=== PATIENT | female | born 1950 | race Two or more races ===

== ENCOUNTER 2023-04-14 11:39 | Outpatient (AMB) | payer MEDICARE, SELFPAY ==
--- NOTE | 2023-04-14 12:15 | HO.SPINEOV ---
Intake Intake Visit Reasons: SI joint Intake Note: Mrs. Zhong is here today c/o recurrent bilateral SI Joint pain. More on the right side. CT Scan done @ [facility] [employer] Required: No Assessment & Plan Assessment & Plan (1) Chronic right SI joint pain: Code(s): M53.3 - Sacrococcygeal disorders, not elsewhere classified; G89.29 - Other chronic pain Plan Dear colleague, On 04/14/2023, I saw for return visit Aniya Zhong for recurrent right SI joint pain. She had bilateral SI joint fusion done in 2020 and 2021 to which she responded well. She had a traumatic event in February and since that time she has suffered from progressive pain in the right SI joint area. 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 A CT of the pelvis shows a solid fusion of the left SI joint but on the right side the implant is sitting outside the SI joint. I reviewed the imaging in detail with the patient and her . My theory is that the traumatic event the allograft that I pack on top of the implant was disrupted. We had an extensive discussion on what would be the best steps forward. My opinion is that she should 1st get an right knee replacement as the results of knee replacements are pretty good and predictable. The result of a revision of the right SI joint is unpredictable. The patient would like to be referred to Pain Management to talk about the Sprint procedure as an alternative to surgery to address the recurrent right SI joint pain. I will refer to Dr. Quezada to discuss this. In the meantime, she is going to schedule her knee replacement and she will keep me up-to-date on her clinical progress. I spent more than 45 minutes in this consult for preparation, review of imaging and discussing plan of care. Orders: Referrals Pain Management Referral G89.29 - Other chronic pain, M53.3 - Sacrococcygeal disorders, not elsewhere classified Coding Level of Care Code Est Pt Level 5 (51445) Diagnoses Chronic right SI joint pain M53.3; G89.29
== END 2023-04-14 12:57 | disposition home or self-care (01) ==
PROVIDERS: PCP Family Medicine; Visit Provider Neurological Surgery
DX: M53.3 Sacrococcygeal disorders, not elsewhere classified (principal); G89.29 Other chronic pain
CPT/HCPCS: 99215

== ENCOUNTER → 2023-04-14 11:39 | Outpatient (BNVA) | payer MEDICARE, SELFPAY | PROVIDERS: PCP Family Medicine; Visit Provider Neurological Surgery | DX: M53.3 Sacrococcygeal disorders, not elsewhere classified (principal); G89.29 Other chronic pain; Z98.1 Arthrodesis status | CPT/HCPCS: 99212 ==